=== PATIENT | male | born 1960 | race Caucasian/White ===

== ENCOUNTER 2021-09-03 10:21 | Emergency (ER) | payer MEDICAID ==
[~2021-09-03] VITALS: Ht 177.8 cm; Wt 81.6 kg
[2021-09-03 10:21] VITALS: BP 119/70
--- NOTE | 2021-09-03 10:37 | NUR ---
PIERCE KWAN AT PT BEDSIDE, TAKING REPORT.
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
[2021-09-03] MEDS ORDERED: ACETAMINOPHEN EXTRA STRENGTH 500 MG TAB PO ONE (10:50)
--- NOTE | 2021-09-03 11:26 | NUR ---
XR AT PT BEDSIDE
--- NOTE | 2021-09-03 12:33 | NUR ---
long arm splint placed , pt refused sling and sign AMA.
--- NOTE | 2021-09-03 12:37 | NUR ---
Patient does not wish to proceed with medical care recommended by . Patient given information related to possible complications, up to and including , which could occur as a result of leaving hospital at this time. Patient verbalizes understanding of risks involved leaving against medical advice. Patient has signed AMA form.
== END 2021-09-03 12:37 | disposition left against medical advice (07) ==
LOC: MED 10:21
DX: S52.121A Displaced fracture of head of right radius, initial encounter for closed fracture (principal); Y08.89XA Assault by other specified means, initial encounter; Y93.89 Activity, other specified; Y92.89 Other specified places as the place of occurrence of the external cause; Y99.8 Other external cause status
CPT/HCPCS: 29105; 73070; 99283